=== PATIENT | female | born 1960 | race Hispanic/Latino ===

== ENCOUNTER 2019-02-13 17:16 | Emergency (ER) | payer BC ==
[~2019-02-13] VITALS: Ht 157.5 cm; Wt 66.7 kg
[~2019-02-13 17:16] MED LIST: LOSARTAN POTAS100 MG PO; METOPROLOL SUCC50 MG PO; OMEPRAZOLE20 MG PO; PRAVASTATIN SOD40 MG PO; ULTIMATE OMEGA PO
--- OUTSIDE RECORDS SUMMARY | 2019-02-13 17:20 | XMS REPORT ---
Author Author [facility] Address Unknown Phone Unavailable Care Team Providers Care Certified Caregiver Name Role Phone Unavailable Unavailable Payers Payer Name Policy Type Policy Number Effective Date Expiration Date Problems This patient has no known problems. Allergies, Adverse Reactions, Alerts Allergy Name Allergy Type Status Severity Reaction(s) Onset Date Inactive Date Treating Clinician Comments No Known Allergies DA Active U 2018-01-22 00:00:00 Medications This patient has no known medications. Results Test Description Test Time Test Comments Text Results Atomic Results Result Comments - CT ABD PELVIS W/CONT 2019-01-08 06:21:00 Name: BHARATH PARRISH [facility] : 1960 Age/S: 58 / F [address] [facility] Unit #: [id number] Loc: [place] [address] Phys: Da Ponce DO Acct: [id number] Dis Date: Status: REG ER PHONE #: [phone] Exam Date: 01/08/2019 0603 FAX #: [phone] Reason: abd pain EXAMS: CPT CODE: [id number] CT ABD PELVIS W/CONT [address] CT abdomen and pelvis with IV contrast. Indication: Abdominal pain Location: R16 Comparison: January 09, 2018 Technique: CT images of the abdomen and pelvis were obtained from the diaphragm to the pubic symphysis after the administration of intravenous contrast contrast. Coronal reformats are provided. One or more of the following dose reduction techniques were used: Automated exposure control, adjustment of the mA and/or kV acc ording to patient size, and/or utilization of iterative reconstruction technique. Findings: Lungs bases: Unremarkable. Upper GI: Prominent gastric antral wall thickening, this can be further evaluated with endoscopy. Liver: Unremarkable. Gallbladder: Surgically absent Pancreas: Unremarkable. Spleen: Unremarkable. Adrenal glands: Unremarkable. Kidneys: Unremarkable. Bowel: No bowel obstruction. The appendix is unremarkable. Diverticulosis is noted. Peritoneum: No ascites. No free air Skeletal: No acute fracture.. Impression: Gastric antral wall thickening with questionable ulcer, this can be further evaluated with endoscopy. Additional findings as detailed above at 0621 Reported and signed by: Candace Castro M.D. PAGE 1 Signed Report (CONTINUED) Name: BHARATH PARRISH [facility] : 1960 Age/S: 58 / F [address] [facility] Unit #: [id number] Loc: [place] [address] Phys: Da Ponce DO Acct: [id number] Dis Date: Status: REG ER PHONE #: [phone] Exam Date: 01/08/2019 0603 FAX #: [phone] Reason: abd pain EXAMS: CPT CODE: [id number] CT ABD PELVIS W/CONT 74457 & lt;Continued> CC: Stevo Saucedo MD; Da Ponce DO Technologist:ARISTEO CELESTE CTDI: DLP: Trnscb Date/Time: 01/08/2019 (620) [email or web address] Orig Print D/T: S: 01/08/2019 (0624) PAGE 2 Signed Report PROCALCITONIN (PCT) 2019-01-08 06:11:00 PROCALCITONIN (PCT) (test code=PROCAL) < 0.05 ng/ml Concentration Interpretation (ng/mL) <0.51 Sepsis is not likely. Local bacterial infection is possible. (LOW RISK for progression to Sepsis) 0.51 - 2.00 Sepsis is possible, but other conditions are known to elevate PCT as well. (MODERATE RISK for progression to Sepsis) > 2.00 Sepsis is likely, unless other causes are known. (HIGH RISK for progression to Severe Sepsis or Septic Shock) 10.00 High likelihood of Severe Sepsis or Septic or higher Shock. *Increased PCT levels may not always be related to systemic bacterial infection.*Low PCT levels do not automatically exclude the presence of bacterial infection.*All results should be interpreted taking into account the patients history. LACTIC [id number] 06:03:00* Test Item Value Reference Range Comments LACTIC ACID (test code=LACT) 1.3 mmol/L 0.4-1.9 BASIC METABOLIC [id number] 05:34:00* Test Item Value Reference Range Comments SODIUM (test code=NA) 139 mmol/L 136-145 POTASSIUM (test code=K) 3.7 mmol/L 3.5-5.1 CHLORIDE (test code=CL) 104.0 mmol/L 98-107 CARBON DIOXIDE (test code=CO2) 28.0 mmol/L 21-32 ANION GAP (test code=GAP) 10.7 10-20 GLUCOSE (test code=GLU) 126 mg/dL 74-106 BLOOD UREA NITROGEN (test code=BUN) 15 mg/dL 7-18 GLOMERULAR FILTRATION RATE (test code=GFR) > 60 mL/min >=60 Estimated GFR by using Modified MDRD formula.Chronic kidney disease is defined as either kidney damageor GFR <60 mL/min/1.73 m2 for >3 months. CREATININE (test code=CREAT) 0.80 mg/dL 0.55-1.02 Note change in reference range due to change in reagent. BUN/CREATININE RATIO (test code=BUN/CREA) 18.8 10-20 CALCIUM (test code=CA) 8.6 mg/dL 8.5-10.1 HEPATIC FUNCTION [id number] 05:34:00* Test Item Value Reference Range Comments TOTAL PROTEIN (test code=PROT) 7.5 gram/dL 6.4-8.2 ALBUMIN (test code=ALB) 3.8 g/dL 3.4-5.0 GLOBULIN (test code=GLOB) 3.7 gram/dL 2.7-4.2 ALBUMIN/GLOBULIN RATIO (test code=A/G) 1.0 0.75-1.50 BILIRUBIN TOTAL (test code=BILT) 0.60 mg/dL 0.0-1.0 BILIRUBIN DIRECT (test code=BILD) 0.13 mg/dL 0.0-0.20 SGOT/AST (test code=AST) 24 IUnit/L 15-37 SGPT/ALT (test code=ALT) 30 IUnit/L 12-78 ALKALINE PHOSPHATASE TOTAL (test code=ALKP) 63 IUnit/L 45-117 Note change in reference range due to change in reagent. [id number] 05:34:00* Test Item Value Reference Range Comments LIPASE (test code=LIP) 89 U/L 73.0-393.0 URINALYSIS [id number] 05:29:00* Test Item Value Reference Range Comments UA COLOR (test code=COLU) Light-Yellow YELLOW UA APPEARANCE (test code=APPU) CLEAR CLEAR UA GLUCOSE DIPSTICK (test code=DGLUU) NEGATIVE mg/dL NEGATIVE UA BILIRUBIN DIPSTICK (test code=BILU) NEGATIVE mg/dL NEGATIVE UA KETONE DIPSTICK (test code=KETU) NEGATIVE mg/dL NEGATIVE UA SPECIFIC GRAVITY (test code=SGU) 1.016 1.001-1.035 UA BLOOD DIPSTICK (test code=BEATA) Negative mg/dL NEGATIVE UA PH DIPSTICK (test code=HERLINDA) 8.5 5.0-8.0 UA PROTEIN DIPSTICK (test code=PROU) 10 (Trace) mg/dL NEGATIVE UA UROBILINIOGEN DIPSTICK (test code=URO) Normal mg/dL NEGATIVE UA NITRITE DIPSTICK (test code=ROSE MARY) NEGATIVE NEGATIVE UA LEUKOCYTE ESTERASE W REFLEX (test code=LEUUR) NEGATIVE Tesfaye/uL NEGATIVE UA WBC (test code=WBCU) 0-5 per HPF 0-5 UA RBC (test code=RBCU) 0-2 #/HPF 0-5 UA EPITHELIAL CELLS (test code=EPIU) FEW per HPF FEW UA BACTERIA (test code=BACU) NONE SEEN #/HPF NONE UA MUCUS (test code=MUCU) FEW #/LPF FEW Urine Source? Clean CatchURINALYSIS [id number] 05:26:00* Test Item Value Reference Range Comments UA COLOR (test code=COLU) Light-Yellow YELLOW UA APPEARANCE (test code=APPU) CLEAR CLEAR UA GLUCOSE DIPSTICK (test code=DGLUU) NEGATIVE mg/dL NEGATIVE UA BILIRUBIN DIPSTICK (test code=BILU) NEGATIVE mg/dL NEGATIVE UA KETONE DIPSTICK (test code=KETU) NEGATIVE mg/dL NEGATIVE UA SPECIFIC GRAVITY (test code=SGU) 1.016 1.001-1.035 UA BLOOD DIPSTICK (test code=BEATA) Negative mg/dL NEGATIVE UA PH DIPSTICK (test code=HERLINDA) 8.5 5.0-8.0 UA PROTEIN DIPSTICK (test code=PROU) 10 (Trace) mg/dL NEGATIVE UA UROBILINIOGEN DIPSTICK (test code=URO) Normal mg/dL NEGATIVE UA NITRITE DIPSTICK (test code=ROSE MARY) NEGATIVE NEGATIVE UA LEUKOCYTE ESTERASE W REFLEX (test code=LEUUR) NEGATIVE Tesfaye/uL NEGATIVE UA WBC (test code=WBCU) per HPF 0-5 UA RBC (test code=RBCU) per HPF 0-5 UA EPITHELIAL CELLS (test code=EPIU) per HPF Few UA BACTERIA (test code=BACU) per HPF NONE Urine Source? Clean CatchBASIC METABOLIC [id number] 05:26:00* Test Item Value Reference Range Comments SODIUM (test code=NA) 139 mmol/L 136-145 POTASSIUM (test code=K) 3.7 mmol/L 3.5-5.1 CHLORIDE (test code=CL) 104.0 mmol/L 98-107 CARBON DIOXIDE (test code=CO2) mmol/L 21-32 ANION GAP (test code=GAP) 10-20 GLUCOSE (test code=GLU) mg/dL 74-106 BLOOD UREA NITROGEN (test code=BUN) mg/dL 7-18 GLOMERULAR FILTRATION RATE (test code=GFR) mL/min >=60 CREATININE (test code=CREAT) mg/dL 0.55-1.02 BUN/CREATININE RATIO (test code=BUN/CREA) 10-20 CALCIUM (test code=CA) mg/dL 8.5-10.1 HEPATIC FUNCTION [id number] 05:26:00* Test Item Value Reference Range Comments TOTAL PROTEIN (test code=PROT) gram/dL 6.4-8.2 ALBUMIN (test code=ALB) g/dL 3.4-5.0 GLOBULIN (test code=GLOB) gram/dL 2.7-4.2 ALBUMIN/GLOBULIN RATIO (test code=A/G) 0.75-1.50 BILIRUBIN TOTAL (test code=BILT) mg/dL 0.0-1.0 BILIRUBIN DIRECT (test code=BILD) mg/dL 0.0-0.20 SGOT/AST (test code=AST) IUnit/L 15-37 SGPT/ALT (test code=ALT) IUnit/L 12-78 ALKALINE PHOSPHATASE TOTAL (test code=ALKP) IUnit/L 45-117 [id number] 05:26:00* Test Item Value Reference Range Comments LIPASE (test code=LIP) U/L 73.0-393.0 CBC W/O [id number] 05:23:00* Test Item Value Reference Range Comments WHITE BLOOD CELL (test code=WBC) 8.9 K/mm3 4.5-12.5 RED BLOOD CELL (test code=RBC) 4.27 mill/mm3 3.7-5.2 HEMOGLOBIN (test code=HGB) 13.2 gram/dL 11.5-15.5 HEMATOCRIT (test code=HCT) 39.3 % 36.0-46.0 MEAN CELL VOLUME (test code=MCV) 92.0 fL 80-98 MEAN CELL HGB (test code=MCH) 30.9 picogram 27.0-33.0 MEAN CELL HGB CONCETRATION (test code=MCHC) 33.6 gram/dL 33.0-36.0 RED CELL DISTRIBUTION WIDTH (test code=RDW) 12.0 % 11.6-16.2 PLATELET COUNT (test code=PLT) 200 K/mm3 150-450 MEAN PLATELET VOLUME (test code=MPV) 10.6 fL 6.7-11.0
[2019-02-13] MEDS ORDERED: CEFTRIAXONE SOD 1 GM/NS 50 ML 50 ML IV STA (17:33)
[2019-02-13] MEDS ORDERED: ONDANSETRON HCL INJ 2MG/ML 2ML 2 MG/ML VIAL IV STA (17:33)
[2019-02-13] MEDS ORDERED: SODIUM CHLORIDE 0.9% 1000ML 1,000 ML IV STA (17:33)
[2019-02-13] MEDS ORDERED: KETOROLAC TROMETHAMINE 30 MG/ML VIAL IV STA (17:33)
[2019-02-13] MEDS ORDERED: ACETAMINOPHEN 325 MG TAB PO ONE (17:45)
[2019-02-13] MEDS ORDERED: CEFTRIAXONE SOD 1 GM VIAL ONE (17:51)
[2019-02-13 17:58] LABS: BASOPHILS % 0.6 % (0.0-1.0); EOSINOPHILS % 0.4 % (0.0-6.0); HEMATOCRIT 39.6 % (34.2-44.1); HEMOGLOBIN 13.1 g/dL (12.0-16.0); LYMPHOCYTES # (AUTO) 0.8 (1.0-3.2); LYMPHOCYTES % 15.5 % (18.0-39.1); MEAN CORPUSCULAR HEMOGLOBIN 30.1 pg (28-32); MEAN CORPUSCULAR HGB CONC 33.1 g/dL (31-35); MONOCYTES # (AUTO) 0.3 (0.2-0.8); MONOCYTES % 6.3 % (4.4-11.3); NEUTROPHILS % 76.8 % (38.7-80.0); PLATELET COUNT 184 x10e3/uL (140-360); RED BLOOD COUNT 4.35 x10e6/uL (3.6-5.1); RED CELL DISTRIBUTION WIDTH 12.3 % (11.7-14.4)
[2019-02-13 18:00] LABS: BILIRUBIN,URINE NEGATIVE (NEGATIVE); CLARITY,URINE CLEAR (CLEAR); COLOR,URINE ORANGE (YELLOW); KETONES,URINE NEGATIVE (NEGATIVE); LEUKOCYTE ESTERASE ,URINE NEGATIVE (NEGATIVE); NITRITE,URINE NEGATIVE (NEGATIVE); PROTEIN,URINE DIPSTICK TRACE (NEGATIVE); URINE UROBILINOGEN 0.2 mg/dL (0.2 - 1)
[2019-02-13 18:15] LABS: BACTERIA,URINE MANY /HPF; EPITHELIAL CELLS,URINE MODERATE /LPF; TRANSITIONAL EPI CELLS,URINE FEW
[2019-02-13 18:18] LABS: ALANINE AMINOTRANSFERASE 19 IU/L (0-55); ALBUMIN 4.2 g/dL (3.5-5.0); ALBUMIN/GLOBULIN RATIO 1.3 (0.8-2.0); ALKALINE PHOSPHATASE 50 IU/L (40-150); ANION GAP 14.6 mmol/L (8-16); BLOOD UREA NITROGEN 13 mg/dL (7-26); BUN/CREATININE RATIO 16 (6-25); CALCIUM 9.2 mg/dL (8.4-10.2); CARBON DIOXIDE 24 mmol/L (22-29); CHLORIDE 105 mmol/L (98-107); CREATININE, SERUM 0.82 mg/dL (0.57-1.11); EST GLOMERULAR FILTRATION RATE > 60 ML/MIN (60-); GLUCOSE 120 mg/dL (74-118); POTASSIUM 3.6 mmol/L (3.5-5.1); SODIUM 140 mmol/L (136-145)
--- NOTE | 2019-02-13 19:05 | NUR ---
REPORT TO SINAN
[2019-02-13 19:09] LABS: CREATINE KINASE MB 0.7 ng/mL (0-5.0)
--- NOTE | 2019-02-13 19:16 | Diagnostic Imaging Report ---
Frontal and lateral views of the chest. HISTORY: High fever, stomach pain COMPARISON: None available. DISCUSSION: Lungs: Minimal left basilar atelectasis. No evidence of a consolidative pneumonia or pulmonary alveolar edema. Pleura: No pleural effusion or pneumothorax. Heart and mediastinum: The cardiomediastinal silhouette appears unremarkable. Bones and soft tissues: Appear unremarkable. IMPRESSION: 1. Minimal left basilar atelectasis. 2. No consolidative pneumonia. Signed by: Dr. Chris Couch D.O., M.M.M. on 02/13/2019 7:13 PM
--- NOTE | 2019-02-13 20:44 | Diagnostic Imaging Report ---
EXAM: CT of the abdomen and pelvis WITH contrast HISTORY: High fever, abdominal pain, diarrhea, history of cholecystectomy, hysterectomy, and COMPARISON: None. TECHNIQUE: The abdomen and pelvis were scanned utilizing a multidetector helical scanner. Coronal and sagittal reformats are provided. PROTOCOL: Routine IV CONTRAST: 100 cc of Isovue-370. ORAL CONTRAST: None, which limits sensitivity and specificity of the exam. RADIATION DOSE: Total DLP: 269.62 mGy*cm Estimated effective dose: (DLP x 0.015 x size factor) Dose modulation, iterative reconstruction, and/or weight based adjustment of the mA/kV was utilized to reduce the radiation dose to as low as reasonably achievable. COMPLICATIONS: None FINDINGS: LOWER THORAX: Unremarkable. HEPATOBILIARY: No mass. No biliary dilation. Metallic clips in the right upper quadrant of the abdomen are compatible with prior cholecystectomy. Mild prominence of the common bile duct, compatible the reservoir effect. SPLEEN: No splenomegaly. PANCREAS: No focal masses or ductal dilatation. ADRENALS: No discrete adrenal nodule. KIDNEYS/URETERS: No hydronephrosis, stones, or definite solid mass lesions. Bilateral small hypodensities, statistically most likely small cyst. PELVIC ORGANS/BLADDER: The visualized pelvic organs appear unremarkable. GI TRACT: No dilation or wall thickening identified. The appendix is normal. PERITONEUM / RETROPERITONEUM: No free air or fluid. LYMPH NODES: No pathologically enlarged lymph node. VESSELS: Unremarkable. BONES and JOINTS: No aggressive osseous lesion or acute fracture. SOFT TISSUES: Unremarkable. IMPRESSION: No acute CT abnormality. Signed by: Dr. Chris Couch D.O., M.M.M. on 02/13/2019 8:41 PM
[2019-02-13] MEDS ORDERED: IOPAMIDOL 370 MG/ML 200 ML INFUS..BTL INJ ONE (21:24)
[2019-02-13] MEDS ORDERED: SODIUM CHLORIDE 0.9% 50ML 50 ML ONE (21:24)
[2019-02-18] MEDS ORDERED: VITAMIN D350000 UNIT PO (15:53)
[2019-02-18] MEDS ORDERED: METFORMIN HCL850 MG PO (15:54)
[2019-02-18] MEDS ORDERED: BISOPROLOL-HCT1 EAC1 PO (15:54)
[2019-02-18] MEDS ORDERED: CALCIUM CARBON500 MG PO (15:54)
[2019-02-18] MEDS ORDERED: ACTONEL150 MG PO (15:55)
[2019-02-18] MEDS ORDERED: CRESTOR10 MG PO (15:56)
== END 2019-02-13 21:26 | disposition home or self-care (01) ==
LOC: ER 17:16
DX: R50.9 Fever, unspecified (principal); R11.2 Nausea with vomiting, unspecified; G44.211 Episodic tension-type headache, intractable; B34.9 Viral infection, unspecified
CPT/HCPCS: 36415; 71046; 74177; 80053; 81001; 82550; 82553; 83605; 84484; 85025; 87040; 87086; 99284; J0696; J1885; J2405; J7030; Q9967

== ENCOUNTER → 2019-02-22 | Day surgery (SDC) | payer BC ==
[~2019-02-22] MED LIST changes: +ACTONEL150 MG PO; +BISOPROLOL-HCT1 EAC1 PO; +CALCIUM CARBON500 MG PO; +CRESTOR10 MG PO; +FENTANYL CITRATE/PF 100MCG/2 ML INJ ONE; +HYOSCYAMINE 0.125 MG TAB ONE; +LIDOCAINE HCL 2% LOCAL INJ 5 ML SDV VIAL INJ ONE; +METFORMIN HCL850 MG PO; +PROPOFOL IV EMULSION 10 MG/ML 50 ML VIAL ONE; +VITAMIN D350000 UNIT PO
[2019-02-22 16:40] VITALS: BP 110/67
--- NOTE | 2019-02-22 17:33 | Operative Report ---
DATE OF PROCEDURE: 02/22/2019 SURGEON: Vasyl Frank MD PROCEDURES: 1. Esophagogastroduodenoscopy with biopsies. 2. Colonoscopy with polypectomy. INDICATIONS FOR EGD: Upper abdominal pain and heartburn. INDICATION FOR COLONOSCOPY: Colorectal cancer screening. MEDICATION: The patient was done under MAC, please see anesthesiologist's note. PROCEDURE IN DETAIL: With the patient in left lateral decubitus position, a flexible fiberoptic Olympus gastroscope was introduced into the esophagus under direct visualization without any difficulty. There was some patchy erythema noted in the distal esophagus. The scope was then advanced with ease into the stomach. Mucosa overlying the antrum revealed some patchy erythema and low-grade to moderate edema and biopsies were obtained and sent to stain for H pylori. There were some patchy areas in the mid body of the stomach that appeared somewhat atrophic and biopsies were obtained to rule out atrophic gastritis. The pylorus was of normal contour and shape, it was intubated with ease and the scope was advanced all the way to the second portion of the duodenum. The scope was then withdrawn slowly and ? prominent ampulla was noted that was biopsied. Also, biopsies were obtained from the second portion and duodenal bulb to rule out sprue. The scope was then withdrawn back into the stomach and retroflexed. Mucosa overlying the fundus and the cardia appeared to be within normal limits. The scope was then straightened out, it was subsequently withdrawn. The patient tolerated the procedure well. IMPRESSION: 1. Distal esophagitis, mild. 2. Rule out atrophic gastritis. 3. Rule out sprue. 4. ? prominent ampulla, biopsied. PLAN: Follow up histology. Initiate Protonix 40 mg one p.o. q.a.m. a.c. The patient was then turned around. After adequate lubrication of the anal canal, the flexible fiberoptic Olympus colonoscope was inserted into the rectum with ease and advanced all the way to the cecum. The scope was then withdrawn slowly. Mucosa overlying the cecum, ascending colon, transverse colon, and descending colon appeared to be within normal limits. Some minimal diverticulosis was noted in the sigmoid colon. One polyp was hot biopsied from the sigmoid colon. The rectum appeared to be within normal limits. The scope was then retroflexed into the distal rectum and small internal hemorrhoids were noted, none of which was actively bleeding. The scope was then straightened out, it was subsequently withdrawn. The patient tolerated the procedure well. IMPRESSION: 1. Diverticulosis, minimal. 2. Sigmoid colon polyp, hot biopsied. 3. Internal hemorrhoids, none actively bleeding. PLAN: Follow up histology. Initiate high-fiber, low-fat diet. Initiate high-fiber supplement. The patient might benefit from a followup colonoscopy in 5 years. MD SAIRA Hernandez/EDIN /[id number] cc: Stevo Saucedo MD
== END | disposition home or self-care (01) ==
LOC: OR 11:55
PROVIDERS: ATTEND Internal Medicine Gastroenterology
DX: K20.9 Esophagitis, unspecified (principal); K57.30 Diverticulosis of large intestine without perforation or abscess without bleeding; K63.5 Polyp of colon; K64.8 Other hemorrhoids; R10.9 Unspecified abdominal pain; R12 Heartburn; K58.9 Irritable bowel syndrome, unspecified; K21.9 Gastro-esophageal reflux disease without esophagitis; I10 Essential (primary) hypertension; E78.00 Pure hypercholesterolemia, unspecified; Z01.810 Encounter for preprocedural cardiovascular examination
CPT/HCPCS: 36415; 43239; 45384; 82948; 93005; J2001; J2704; J3010